=== PATIENT | female | born 1980 | race Caucasian/White ===

== ENCOUNTER 2025-01-23 14:38 | Outpatient (AMB) | payer MEDICAID, SELFPAY ==
[2025-01-23 15:07] VITALS: BP 107/57; PULSE 76; RESP 18; TEMP 36.2; O2SAT 98
--- NOTE | 2025-01-23 15:07 | AMB.GYNCLNOT ---
Vital Signs 01/23/25 15:07 Weight 73.198 kg Weight Measurement Method Standing Scale BP 107/57 L Blood Pressure Source Automatic Cuff Blood Pressure Location Left Upper Arm Position Sitting Respiration 18 Pulse 76 Pulse Source Monitor Temp 97.2 F Temp Source Oral Pulse Oximetry (%) 98 Oxygen Delivery Method Room Air Allergies/Home Meds Allergies & Medications Allergies No Known Allergies Allergy (Verified 01/23/25 15:10) Medication Reconciliation No Known Home Medications 07/05/18 [History Confirmed 01/23/25] Intake Visit Data Collection New Patient or Established: Established Patient (seen at [facility] within 3 years) Reason for Visit:: PAP Seen by Clinical Staff ONLY (RN/MA): No Rover Tender Required: No Do You Feel Safe at Home: Yes Authorities Contacted: N/A PCP or OBGYN visit in last 3 months: Yes Hx Now: No Are you currently on any form of Control: No Pain Present Currently: No Pain Scale Used: Carpenter-Santiago/Numerical Pain scale:: 0 Smoking Status Smoking Status: Never smoker Engineer/Conductor history Engineer/Conductor History Menstrual regularity: regular Flow: normal Monthly: Yes How many days does period last: 7 Age at menarche: 10 Menopausal: No Currently sexually active: Yes Additional comments: normal menses starting 5/3 x 7 days. c/o of continued dark brown and red dischargex 14 days. no cramps [employer]ANE [employer]: Past Medical History Past Medical History: No Hx Renal Disease, No Hx Diabetes Mellitus Type 1 and No Hx Diabetes Mellitus Type 2 Questionnaires Covid-19 Vaccine Questionnaire Has patient been vacinated for Covid-19 Have you been vacinated for Covid-19: Yes PHQ-9 PHQ-2 Over the last 2 weeks, how often have you been bothered by any of the following problems? 1. Little interest or pleasure in doing things: not at all 2. Feeling down, depressed, or hopeless: not at all Total score: 0 PHQ-9 3. Trouble falling or staying asleep, or sleeping too much: Not at all 4. Feeling tired or having little energy: Not at all 5. Poor appetite or overeating: Not at all 6. Feeling bad about yourself - or that you are a failure or have let yourself or your family down: Not at all 7. Trouble concentrating on things, such as reading the newspaper or watching television: Not at all 8. Moving or speaking so slowly that other people could have noticed? - Or the opposite - being so fidgety or restless that you have been moving around a lot more than usual: not at all 9. Thoughts that you would be better off or of hurting yourself in some way: Not at all Total score: 0 If you checked off any problems, how difficult have these problems made it for you to do your work, take care of things at home, or get along with other people?: not difficult at all Source: Developed by Drs. Parrish Jorgensen, Desire Lechuga, Thiago Johnson and colleagues, with an educational yasmani from [facility]. 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 LMP 01/06/25 x 7 days, menses usually q month. sometimes heavier than other days. reports that there has been spotting brown with mucous and red discharge x 2 week. denies existing chronic illness. denies social habit. c/s x5, BTL. no c/o vaginitis, no family hx of breast cancer. patient expresed a dark discharge from R nipple x 1 week, no complaints of breast pain Menstrual character: normal and abnormally heavy (x 1 week with last menses) Gynecologic pain symptoms: Reports none Menopause concerns/symptoms: Reports none Review of Systems Review of Systems Systems Reviewed: All systems reviewed, normal except as documented Exam Narrative Physical exam: Euthyroid, mobile,no masses. both breast soft, non tender, no masses palpated bilateral, abdomen soft, non tender, no masses palpated. perineum clear, no lesions, vagina pink, no masses palpated, parrous cervix, small trickle of blood from cervix, uterus mobile, antevert, mobile, firm, normal size, no adnexa mass palpated. legs in good shape, normal pulses, no varices General Limitations: no limitations General Appearance: alert, in no apparent distress, comfortable, cooperative, healthy appearing, well developed and well groomed Head Head exam: atraumatic, normocephalic and normal inspection Resp Respiratory exam: Present normal lung sounds bilaterally Card Cardiovascular exam: Present regular rate, normal rhythm and normal heart sounds Abdominal Abdominal exam: Present soft and normal bowel sounds Rectal Rectal exam: Present normal inspection External exam: Present normal external exam Speculum exam: Present normal speculum exam and vaginal bleeding (small red blood from cervix) Bimanual exam: Present normal bimanual exam Psych Psychiatric exam: Present normal affect and normal mood Office Procedures OB Clinic LOC & Office Proc's Nursing/Assessment Patient Status: Established Patient OB Clinic Nursing Assessment: Medication Reconciliation, Update PMH in EMR and Vital Signs OB Clinic Coordination of Care: Education Complex Pt/Fam, Consent,records obtained, informed consent and Staff clarify orders Miscellaneous Interventions: Pelvic/Pap Smear Set up Established Patient Charge Established Patient Point Assignment: 85 Established Patient Point Charge: EP Level 3 (80-115) In Clinic Procedures Pap Smear: Yes Papsmear Ambulatory Location Ambulatory Dept Location: OB Clinic Patient Information Last Menstral Period (LMP): 01/06/25 Last menstral period date (LMP): Yes : 5 Para: 5 Spontaneous (s): 0 Theraputic (s): 0 Pap Smear Procedure Chaparone in room during procedure?: No Pre-op diagnosis general: [employer] exam Post-op diagnosis procedure note: Same Procedure Notes:: spec placed in vagina, pap specimen obtained. no bleeding, patient tolerated well Assessment & Plan Diagnosis / Problem List (1) Encounter for Routine Gynecological Examination: (2) Encounter for Pap cervical smear following prior abnormal smear: Status: Acute (3) Encounter for Papanicolaou smear of vagina as part of routine gynecological examination: Status: Acute (4) High risk human papillomavirus (HPV) DNA not detected: Status: Acute Plan PAP smear today, schedule screening mammo and Right breast sono for breast discharge. pelvic sono for irregular vaginal bleeding. discuss self breast exam. discussed diet and exercise. walk 40 minute daily. f/u with PCP for chronic health issue and general health maintenance. RTC for results after pelvic sono and mammogram Additional Plan Follow Up: 3 Weeks (f/u results) HEAVY EQUIPMENT ENGINE MECHANIC: Papsmear Pap Smear Procedure Chaparone in room during procedure?: No Post-op diagnosis procedure note: Same Papsmear completed: yes
== END 2025-01-23 15:46 | disposition home or self-care (01) ==
LOC: HODSOBC 14:38
PROVIDERS: Supervising Provider Advanced Practice Midwife; Visit Provider Advanced Practice Midwife
DX: Z01.411 Encounter for gynecological examination (general) (routine) with abnormal findings (principal); Z11.51 Encounter for screening for human papillomavirus (HPV); N93.9 Abnormal uterine and vaginal bleeding, unspecified
CPT/HCPCS: 99213; Q0091; G0463

== ENCOUNTER → 2025-03-29 | Outpatient (CLI) | payer MEDICAID, SELFPAY ==
--- NOTE | 2025-03-29 15:30 | XR_ITS ---
Examination: Screening digital mammography, bilateral Computer aided detection 3-D breast Tomosynthesis, bilateral Date and time of exam: March 29, 2025 at 1507 hours No priors Indication: Screening Discharge right breast 2 months Technique: Nonmagnified MLO, CC views of the breasts to been obtained, reconstructed from 3-D Tomosynthesis images. R2 computer aided detection program utilized for evaluation of suspicious masses and/or abnormal calcifications. 3-D Tomosynthesis images obtained. Findings: The breasts are heterogeneously dense, which may obscure small masses 20 mm focal asymmetry retroareolar region left breast Benign calcifications Impression: BI-RADS Category 0: Incomplete: Need additional imaging evaluation Recommend follow-up spot tomographic views of 20 mm focal asymmetry retroareolar region left breast as well as bilateral breast sonography to complete the workup.
== END | disposition home or self-care (01) ==
PROVIDERS: PCP Physician Assistant; Referring Provider Advanced Practice Midwife; Visit Provider Advanced Practice Midwife
DX: Z12.31 Encounter for screening mammogram for malignant neoplasm of breast (principal); N64.89 Other specified disorders of breast; R92.8 Other abnormal and inconclusive findings on diagnostic imaging of breast
CPT/HCPCS: 77063; 77067

== ENCOUNTER 2025-06-19 13:44 | Emergency (ER) | payer MEDICAID, SELFPAY ==
--- NOTE | 2025-06-19 13:52 | EKG_ITS ---
[facility] Test Date: 2025-06-19 Pat Name: ROWDY WILEY Department: Room: - Gender: Female Core Manager: : 1980 Requested By: ED Temporary Provider Order Number: [id number] Reading MD: ED Temporary Provider Measurements Intervals [place] Rate: 59 P: 35 ID: [id number] QRS: 80 QRSD: 95 T: 68 QT: 402 QTc: 401 Interpretive Statements SINUS BRADYCARDIA INCOMPLETE RIGHT BUNDLE BRANCH BLOCK [90+ ms QRS DURATION, TERMINAL R IN V1/V2, 40+ ms S IN I/aVL/V4/V5/V6] No previous ECG available for comparison /store/S0/[id number].pdf
[2025-06-19 13:58] VITALS: BP 121/79; PULSE 68; RESP 18; TEMP 36.4; O2SAT 98
--- NOTE | 2025-06-19 14:09 | EDNOTE_ITS ---
ED Chest Pain RME/HPI General Chief Complaint: Chest Pain Stated Complaint: CHEST PAIN SINCE 10AM, 06/15 Time Seen by Provider: 06/19/25 13:58 Arrival date/time: 06/19/25 13:44 RME / HPI RME / HPI narrative: 45-year-old female with past medical history of anxiety and depression which is associated with a feeling of chest pressure that she gets intermittently for years and was advised by her PMD that this is coming from her psychiatric diagnoses presents to the ER for an acute exacerbation of her typical pain which is chest pressure that radiates to her flanks bilaterally and it started today at 10 AM when she was just resting. Pain is not worse with exertion or deep breaths. Patient notes her father at the age of 53. Denies shortness of breath, nausea vomiting, fever, cough, diarrhea. Patient denies any recent travel surgeries immobilizations history of leg swelling or blood clots or OCP use. Denies SI or HI. Past medical history: Denies hypertension, high cholesterol, diabetes Social history: Denies EtOH or smoking or drugs Related Data Previous Rx's ?Medication ?Instructions ?Recorded hydroxyzine HCl 25 mg tablet 25 mg PO QID PRN anxiety #14 tabs 06/19/25 Allergies Allergy/AdvReac Type Severity Reaction Status Date / Time No Known Allergies Allergy Verified 06/19/25 13:49 ED Exam Narrative Physical exam: Constitutional: Patient alert and oriented. Well appearing. No acute distress. Not toxic appearing. Head: Normocephalic, atraumatic. Eyes: Periorbital regions bilaterally normal to inspection. Conjunctiva clear bilaterally. Sclera anicteric bilaterally. Pupils equal, round, reactive to light bilaterally. Extraocular movements intact bilaterally. Mouth/Throat: Mucous membranes moist. No stridor or muffled voice. No trismus. Handling secretions without difficulty. Airway widely patent. Neck: Supple. Trachea midline. No JVD. No nuchal rigidity. Normal range of motion. Respiratory: Normal effort. No accessory muscle use or respiratory distress. Lungs clear to auscultation bilaterally without rhonchi, wheezes, or crackles. Cardiovascular: RRR. Normal S1/S2. No murmurs or rubs. Radial pulses intact bilaterally. Abdomen: Soft. Non-distended. Non-tender throughout. No pulsatile mass. No guar ding or rebound. Negative Johnson?s sign. Negative McBurney?s point tenderness. Negative Rovsing?s. Back: No midline tenderness or step-offs. No CVA tenderness to palpation bilaterally. Upper Extremities: No gross deformities. Lower Extremities: No gross deformities. No edema or calf tenderness. Neuro: Speech normal. No gross motor or sensory deficits to upper or lower extremities bilaterally. GCS 15. CN II?XII grossly intact. Skin: Warm, dry, normal color. Psych: Normal affect. Cooperative. Normal insight. Course Quality Measures none Orders Category Date Time Status EKG (ED ONLY) *Do not use* NOW Care 06/19/25 13:52 Completed EKG (ED Only) Stat Exams 06/19/25 13:52 Draft XR chest 2V Stat Exams 06/19/25 14:16 Completed B-Type Natriuretic Peptide Stat Lab 06/19/25 15:28 Completed CBC Stat Lab 06/19/25 15:28 Completed Comprehensive Metabolic Panel Stat Lab 06/19/25 15:28 Completed HCG,Qualitative Serum Stat Lab 06/19/25 15:28 Completed Lipase Stat Lab 06/19/25 15:28 Completed Troponin I Stat Lab 06/19/25 15:28 Completed Troponin I Stat Lab 06/19/25 18:36 Completed Urinalysis, C/S if Indicated Stat Lab 06/19/25 14:40 Completed LORazepam [Ativan] Med 06/19/25 14:24 Discontinued 1 mg PO X1 ONE Reevaluation(s) Reevaluation #1: At the time of reassessment, the patient remains alert and oriented ?3 with GCS 15. Vitals are normal, pain is controlled, and the patient is tolerating oral intake without nausea or vomiting. The patient is agreeable to discharge and verbalizes understanding of the diagnosis, studies, treatment plan, medications (including side effects/precautions), and strict ER return precautions as discussed in the ED. All concerns were addressed, and the patient is comfortable with the plan. Vital Signs Vital signs: Vital Signs Temperature 97.5 F 06/19/25 13:58 Pulse Rate 68 06/19/25 13:58 Respiratory Rate 18 06/19/25 13:58 Blood Pressure 121/79 06/19/25 13:58 Pulse Oximetry (%) 98 06/19/25 13:58 Oxygen Delivery Method Room Air 06/19/25 13:58 Chest Pain MDM Narrative MDM Narrative:: MDM The patient presents with chest pain. Differential diagnosis includes anxiety, musculoskeletal chest pain, GERD, bronchial pleurisy, costochondritis, and thoracic radiculopathy. Less likely etiologies include: PE: Wells low risk, PERC negative. ACS: HEART Score low risk 1, suggesting low probability of major adverse cardiac event in the next 6 weeks. Aortic Dissection: Unlikely given palpable pulses, warm extremities bilaterally, and no radiation of pain. Tamponade: Unlikely given absence of hypotension, muffled heart sounds, JVD, friction rub, narrow pulse pressure <30, low-voltage EKG, or enlarged cardiac silhouette. Endocarditis: Unlikely as no Cuellar criteria present (Ellsworth spots, splinter hemorrhages, Osler nodes). CHF: Unlikely given no JVD, peripheral edema, or orthopnea. The patient is clinically well-appearing and stable. Evaluation today does not suggest cardiac ischemia, pulmonary embolism, aortic dissection, or other life- threatening etiology. These diagnoses were considered and excluded clinically and with appropriate studies. Nonetheless, it is understood by both patient and provider that no evaluation can entirely exclude such conditions. Admission was considered but is not indicated based on today?s evaluation and low-risk stratification. The patient is strongly encouraged to follow up with their PMD and/or tube builder within the next 1-2 days. Strict ER return precautions advised for any continued, worsening, or new symptoms or any concerns at all. Patient data External records reviewed:: None Clinical information provided by:: patient Social determinants that could affect healthcare access:: none Patient has the following chronic illnesses:: As noted How is presenting disease/condition affected by chronic disease/condition?: no chronic disease Evaluation data The following diagnostics were reviewed and interpreted by me:: other (specify) Lab and/or radiology exams considered but not ordered:: Labs and radiology considered, but not ordered as they were not clinically indicated at this time. Interpretation Summary: EKG notable sinus bradycardia [address] elevation or T wave inversions, incomplete bundle branch block noted. EKG without acute ischemia, high grade AV block, arrhythmia CBC without severe leukocytosis, anemia, or thrombocytopenia CMP without severe hyperbilirubinemia, transaminitis, acute renal failure or severe electrolyte derangement Lipase without severe elevation, BNP unremarkable, troponin x 2 negative Medications / Prescriptions Medications or Prescriptions considered but not ordered:: I considered prescription management (both outpatient prescriptions AND drug treatment in the ER) and decided that this was necessary and was prescribed as charted. Medication administrations:: Medication Administration History Discontinued Medications Lorazepam (Lorazepam 0.5 Mg Tablet) 1 mg PO X1 ONE Stop: 06/19/25 14:25 Last Admin: 06/19/25 14:33 Dose: 1 mg Documented By: LP As noted Consultations Consultation(s) initiated? (list below): No Diagnosis Chest Pain Differential Diagnosis: atypical chest pain, costochondritis and chest pain Most likely diagnosis given after review of the tests above:: Chest pain of unclear etiology Admission Indicated Admission indicated?: not indicated Admission Request Was there a request for admission?: No Disposition Plan Disposition Plan: Discharge Discharge Attestation Discharge Attestation: The patient and all family members were given an opportunity to ask questions and understood the discharge instructions. Discharge instructions specifically effects, indications for sooner follow up or return to the emergency department, and the expected course of current diagnosis. Patient condition: Stable Discharge Plan Plan Patient Disposition: HOME (Self Care) Patient condition on transfer: Stable Prescriptions/Referrals Prescriptions/Med Rec: New hydroxyzine HCl 25 mg tablet 25 mg PO QID PRN (Reason: anxiety) Qty: 14 0RF Referrals: Abraham Hamlin MD [Primary Care Provider, Family Practice] - In 1 week Problem List Clinical Impression: Chest pain Patient/Caregiver Discharge Instructions Education Materials: ED Anxiety Reaction, ED Chest Pain, Uncertain Cause Additional Instructions: Follow up with your primary medical doctor within 24 hours. Return to the Emergency Room immediately for any new, worsening, continuing symptoms or any concerns at all. Return to the Emergency Room within 24 hours if you are unable to follow up with your primary medical doctor within 24 hours. Follow-up with a tube builder within a week. Print Language: New Zealander Stand Alone Forms: Claudia Award Info., Patient Portal Info Letter GILBERTO/LEROY Supervising Physician GILBERTO/LEROY Supervising Physician: Dr. Ballesteros
--- NOTE | 2025-06-19 14:16 | XR_ITS ---
EXAMINATION: PA lateral chest 2 views TECHNIQUE: Upright PA lateral chest 2 views Date and time: June 19, 2025, 1453 hours INDICATIONS: Chest pain beginning last night. FINDINGS: Normal heart size Lungs are clear. The osseous structures are intact. IMPRESSION: No active disease
[2025-06-19 14:55] LABS: Collection Type, Urine Clean Catch
[2025-06-19 15:21] LABS: Bacteria,Urine Rare; Bilirubin,Urine Negative (Negative); Blood,Urine Negative (Negative); Clarity,Urine Clear (Clear/Hazy); Color,Urine Lt-Yellow (Lt Yel-Yel); Culture Indicated,Urine Not Indicated; Glucose, Urine Negative (Negative); Ketones,Urine 2+ (Negative); Leukocyte Esterase,Urine Negative (Negative); Nitrite,Urine Negative (Negative); PH,Urine 6.5 (5.0-7.0); Protein,Urine Negative (Neg - Trace); RBC,Urine 2 /hpf (0-3); Specific Gravity,Urine 1.019 (1.001-1.035); Squamous Epithelial Cell,Urine 7 /hpf (0-5); Urobilinogen,Urine Negative mg/dL (0.0-1.0); WBC,Urine < 1 /hpf (0-5)
[2025-06-19 16:27] LABS: Basophils # (Auto) 0.0 Thou/mm3 (0.0-0.2); Basophils % (Auto) 0 % (0-2.5); Eosinophils # (Auto) 0.0 Thou/mm3 (0.0-0.5); Eosinophils % (Auto) 1 % (0-10); Hematocrit 42.3 % (36.0-46.0); Hemoglobin 13.5 g/dL (12.0-16.0); Immature Granulocytes Auto 0.01 Thou/mm3 (0.00-0.00); Lymphocytes # (Auto) 1.7 Thou/mm3 (1.0-4.8); Lymphocytes % (Auto) 29 % (10-50); Mean Corpuscular HGB Conc 31.9 g/dl (31.0-37.0); Mean Corpuscular Hemoglobin 25.0 pg (25.0-35.0); Mean Corpuscular Volume 78 fL (80-100); Monocytes # (Auto) 0.5 Thou/mm3 (0.0-0.8); Monocytes % (Auto) 9 % (0-12); Neutrophils # (Auto) 3.6 Thou/mm3 (1.8-7.7); Neutrophils % (Auto) 62 % (37-80); Nucleated Red Blood Cell # 0.00 Thou/mm3 (0.00-0.00); Nucleated Red Blood Cell % 0 /100 WBC (0); Platelet Count 171 Thou/mm3 (140-440); RDW Standard Deviation 42.5 fL (36.4-46.3); Red Blood Count 5.40 Miln/mm3 (4.00-5.20); White Blood Count 5.9 Thou/mm3 (3.6-11.0)
[2025-06-19 16:31] LABS: HCG,Qualitative Serum Negative
[2025-06-19 16:37] LABS: B-Type Natriuretic Peptide < 20 pg/mL (0-100)
[2025-06-19 16:40] LABS: Alanine Aminotransferase 15 U/L (10-49); Albumin, Serum 4.4 gm/dL (3.5-5.0); Albumin/Globulin Ratio 1.5 (1.2-2.2); Alkaline Phosphatase 61 U/L (46-116); Anion Gap 10 (7-16); Aspartate Amino Transferase 26 U/L (0-34); BUN/Creatinine Ratio 10 Ratio (12-20); Bilirubin,Total 0.7 mg/dL (0.3-1.2); Blood Urea Nitrogen 8 mg/dL (9-23); Calcium 9.0 mg/dL (8.3-10.6); Calcium (Corrected) 9.0 mg/dL (8.5-10.1); Carbon Dioxide 25.8 mMol/L (20.0-31.0); Chloride 104 mMol/L (98-107); Creatinine (Component) 0.8 mg/dL (0.6-1.3); Globulin 2.9 gm/dL (2.3-3.5); Glucose 85 mg/dL (74-106); Lipase 43 U/L (12-53); Osmolality,Calculated 276 (275-295); Potassium 4.2 mMol/L (3.4-5.1); Sodium 140 mMol/L (136-145); Total Protein 7.3 gm/dL (5.7-8.2); Troponin I < 0.002 ng/mL (0.0-0.045); eGFR > 60 See Note
[2025-06-19 19:12] LABS: Troponin I < 0.002 ng/mL (0.0-0.045)
[2025-06-19 20:21] VITALS: BP 127/64; PULSE 78; RESP 18; TEMP 37.2; O2SAT 98
== END 2025-06-19 20:21 | disposition home or self-care (01) ==
PROVIDERS: Physician Assistant; Emergency Provider Emergency Medicine; PCP Family Medicine
DX: R07.9 Chest pain, unspecified (principal); F41.1 Generalized anxiety disorder
CPT/HCPCS: 36415; 71046; 80053; 81001; 83690; 83880; 84484; 84703; 85025; 93005; 99283; A9270

== ENCOUNTER → 2025-07-18 | Outpatient (CLI) | payer MEDICAID, SELFPAY ==
--- NOTE | 2025-07-18 10:30 | XR_ITS ---
Examination: Breast ultrasound complete, bilateral Date and time of exam: July 18, 2025, 11:11 a.m. INDICATIONS: Mammogram March 29, 2000 2520 mm focal asymmetry retroareolar region left breast Technique: Real-time grayscale ultrasonographic imaging bilateral breasts, including all 4 quadrants as well as nipple retroareolar and axillary regions. Findings: Sonographic images right breast No cystic or solid mass Sonographic images left breast Retroareolar nodule indistinct margins 16 x 6 x 11 mm IMPRESSION: BI-RADS Category 0: Incomplete: Need additional imaging evaluation Recommend this patient return for repeat dedicated left breast sonography with attention to the retroareolar region left breast with a radiologist in attendance
--- NOTE | 2025-07-18 11:30 | XR_ITS ---
Examination: Diagnostic digital mammography, unilateral, left Computer aided detection 3-D breast Tomosynthesis, unilateral Date and time of exam: July 18, 2025, 1131 hours INDICATIONS: Mammogram March 29, 2025 20 mm focal asymmetry retroareolar region left breast Technique: Nonmagnified MLO, CC views of the left breast have been obtained, reconstructed from 3-D Tomosynthesis images. R2 computer aided detection program utilized for evaluation of suspicious masses and/or abnormal calcifications. 3-D Tomosynthesis images obtained. Findings: The breast is heterogeneously dense, which may obscure small masses Abnormal retroareolar density is depicted on the spot compression views Impression: BI-RADS category 0: Incomplete: Need additional imaging evaluation Left breast sonography performed today This patient should return for dedicated left breast sonography with a radiologist in attendance, specific attention to the retroareolar region left breast
== END | disposition home or self-care (01) ==
LOC: CDIM 10:40
PROVIDERS: PCP Physician Assistant; Referring Provider Advanced Practice Midwife; Visit Provider Advanced Practice Midwife
DX: R92.8 Other abnormal and inconclusive findings on diagnostic imaging of breast (principal)
CPT/HCPCS: 76641; 77061; 77065; G0279